=== PATIENT | male | born 1970 | race Two or more races ===

== ENCOUNTER 2016-09-27 11:24 | Inpatient (IN) | payer OTHER ==
[2016-09-27 12:31] VITALS: BMI 17.6
[2016-09-27] MEDS ORDERED: guaiFENesin/D-METHORPHAN HB 10 ML UNIT-DOSE CUPS PO PRN (14:04)
[2016-09-27] MEDS ORDERED: hydrOXYzine PAMOATE 50 MG CAPSULE (FP) PO PRN (14:04)
[2016-09-27] MEDS ORDERED: NICOTINE POLACRILEX 4 MG GUM BUC PRN (14:04)
[2016-09-27] MEDS ORDERED: MAGNESIUM CITRATE 300 ML BOTTLE PO PRN (14:04)
[2016-09-27] MEDS ORDERED: MAG HYDROX/AL HYDROX/SIMETH 30 ML UNIT-DOSE CUP PO PRN (14:04)
[2016-09-27] MEDS ORDERED: P-EPHED 60MG/TRIPROLIDI 2.5MG TABLET PO PRN (14:04)
[2016-09-27] MEDS ORDERED: IBUPROFEN 400 MG TABLET (FP) PO PRN (14:04)
[2016-09-27] MEDS ORDERED: MAGNESIUM HYDROX 2400MG/30ML ORAL SUSPENSION 30 ML CUP PO PRN (14:04)
[2016-09-27] MEDS ORDERED: MENTHOL/PHENOL 1 EACH UD MM PRN (14:04)
[2016-09-27] MEDS ORDERED: chlordiazePOXIDE HCL 25 MG CAPSULE PO PRN (14:04)
[2016-09-27] MEDS ORDERED: LOPERAMIDE HCL 2 MG CAPSULE PO PRN (14:04)
[2016-09-27] MEDS ORDERED: diphenhydrAMINE HCL 50 MG CAPSULE PO PRN (14:04)
[2016-09-27] MEDS ORDERED: ACETAMINOPHEN 325 MG TABLET (FP) PO PRN (14:04)
--- NOTE | 2016-09-27 14:04 | HP ---
CIWA Score - CIWA Score Nausea/Vomitin Muscle Tremors: 4-Moderate,w/Arms Extend Anxiety: 4-Mod. Anxious/Guarded Agitation: 4-Moderately Restless Paroxysmal Sweats: 3 Orientation: 0-Oriented Tacttile Disturbances: 0-None Auditory Disturbances: 0-None Visual Disturbances: 0-None Headache: 2-Mild CIWA-Ar Total Score: 20 Admission ROS BHS - HPI Chief Complaint: requesting inpatient alcohol detoxificaiton services Allergies/Adverse Reactions: Allergies Allergy/AdvReac Type Severity Reaction Status Date / Time No Known Allergies Allergy Verified 09/27/16 14:02 History of Present Illness: 46 yo m with h/o alcohol dependence and GLADIS, no h/o seizures, has had blackouts a long time ago, denies DTS, has been in detox 1x 5 years ago at . PMHx BCG h /o PPD+, otherwise neg, not on any mediations occasionally smokes marijuana no other drug use reported, no alcohol use today, last drink yesterday drinks vodka and beer, 64 oz 1-5 pints vodka. smokes 1PPD. Reports recent wt loss and ankle swelling from living on streets, nause, tremors, anxiety, sweats, insomania when he does not drink. 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 Exam Limitations: No Limitations - Ebola screening Have you traveled outside of the country in the last 21 days: No Have you had contact with anyone from an Ebola affected area: No Have you been sick,other than usual withdrawal symptoms: No Do you have a fever: No - Review of Systems Constitutional: Diaphoresis, Weight Stable EENT: reports: No Symptoms Reported Respiratory: reports: No Symptoms reported Cardiac: reports: No Symptoms Reported GI: reports: Poor Fluid Intake : reports: No Symptoms Reported Musculoskeletal: reports: No Symptoms Reported, Joint Pain (r arm when weather changes from overuse in construction) Integumentary: reports: Flushing, Sweating Neuro: reports: Headache, Tremors (when detoxing) Endocrine: reports: No Symptoms Reported Hematology: reports: No Symptoms Reported Psychiatric: reports: Judgement Intact, Mood/Affect Appropiate, Orientated x3, Agitated, Anxious, Depressed Other Systems: Reviewed and Negative Patient History - Patient Medical History Hx Anemia: No Hx Asthma: No Hx Chronic Obstructive Pulmonary Disease (COPD): No Hx Cancer: No Hx Cardiac Disorders: No Hx Congestive Heart Failure: No Hx Hypertension: No Hx Hypercholesterolemia: No Hx Pacemaker: No HX Cerebrovascular Accident: No Hx Seizures: No Hx Dementia: No Hx Diabetes: No Hx Gastrointestinal Disorders: No Hx Liver Disease: No Hx Genitourinary Disorders: No Hx Sexually Transmitted Disorders: No Hx Renal Disease (ESRD): No Hx Thyroid Disease: No Hx Human Immunodeficiency Virus (HIV): No Hx Hepatitis C: No Hx Depression: No Hx Suicide Attempt: No Hx Bipolar Disorder: No Hx Schizophrenia: No - Patient Surgical History Past Surgical History: No Hx Neurologic Surgery: No Hx Cataract Extraction: No Hx Cardiac Surgery: No Hx Lung Surgery: No Hx Breast Surgery: No Hx Breast Biopsy: No Hx Abdominal Surgery: No Hx Appendectomy: No Hx Cholecystectomy: No Hx Genitourinary Surgery: No Hx Section: No Hx Orthopedic Surgery: No Hx Hysterectomy: No Anesthesia Reaction: No - PPD History Previous Implant?: Yes Documented Results: Positive w/o proof Implanted On Prior R Admission?: Yes PPD to be Administered?: Yes - Reproductive History Patient is a Female of Child Bearing Age (11 -55 yrs old): No - Smoking Cessation Smoking history: Current every day smoker Have you smoked in the past 12 months: Yes Aproximately how many cigarettes per day: 20 Hx Chewing Tobacco Use: No Initiated information on smoking cessation: Yes 'Breaking Loose' booklet given: 09/27/16 - Substance & Tx. History Hx Alcohol Use: Yes Hx Substance Use: No Substance Use Type: Alcohol Hx Substance Use Treatment: Yes [facility] - Substances Abused Alcohol Route: Oral Frequency: Daily Amount used: vodka(1-2 pints)/beer64 oz Age of first use: 19 Date of Last Use: 09/26/16 Marijuana/Hashish Route: Inhalation Frequency: Daily Amount used: $10 Age of first use: 19 Date of Last Use: 09/26/16 Family Disease History - Family Disease History Family History: Denies Family Disease History: Other: Father (alcoholism) Admission Physical Exam BHS - Vital Signs Vital Signs: Vital Signs - 24 hr 09/27/16 12:29 Temperature 98.1 F Pulse Rate 101 H Respiratory 18 Rate Blood Pressure 148/87 - Physical General Appearance: Yes: No Apparent Distress, Nourished, Appropriately Dressed , Mild Distress, Thin, Tremorous, Irritable, Sweating, Anxious HEENTM: Yes: EOMI, Hearing grossly Normal, Normal ENT Inspection, Normocephalic , Normal Voice, PHILIP, Pharynx Normal, Other (poor dental hygiene) Respiratory: Yes: Within Normal Limits, Chest Non-Tender, Lungs Clear, Normal Breath Sounds, No Respiratory Distress, No Accessory Muscle Use Neck: Yes: Within Normal Limits, No masses,lesions,Nodules, Supple, Trachea in good position Breast: Yes: Breast Exam Deferred Cardiology: Yes: Within Normal Limits, Regular Rhythm, Regular Rate, S1, S2 Abdominal: Yes: Within Normal Limits, Normal Bowel Sounds, Non Tender, Flat, Soft Genitourinary: Yes: Within Normal Limits Back: Yes: Within Normal Limits, Normal Inspection Musculoskeletal: Yes: Within Normal Limits, full range of Motion, Gait Steady Extremities: Yes: Within Normal Limits, Normal Capillary Refill, Normal Inspection, Normal Range of Motion, Non-Tender 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
[2016-09-27] MEDS ORDERED: chlordiazePOXIDE HCL 25 MG CAPSULE PO ONE (14:57)
[2016-09-27] MEDS: NICOTINE 21 MG/24 HOURS TOPICAL PATCH TD SCH (16:25)
[2016-09-27] MEDS: chlordiazePOXIDE HCL 25 MG CAPSULE PO SCH ×2 (16:26→22:17)
[2016-09-27 20:31] LABS: URINE APPEARANCE CLEAR; URINE BILIRUBIN NEGATIVE (NEGATIVE); URINE BLOOD NEGATIVE (NEGATIVE); URINE COLOR DKYELLOW; URINE GLUCOSE (UA) NEGATIVE (NEGATIVE); URINE KETONE TRACE (NEGATIVE); URINE LEUK ESTERASE NEGATIVE (NEGATIVE); URINE NITRITE NEGATIVE (NEGATIVE); URINE PROTEIN NEGATIVE (NEGATIVE); URINE UROBILINOGEN 2.0 E.U/dl E.U./dl (0.2-1.0)
[2016-09-27] MEDS ORDERED: THIAMINE HCL 100 MG TABLET (FP) PO SCH (22:00)
[2016-09-28] MEDS: chlordiazePOXIDE HCL 25 MG CAPSULE PO SCH ×2 (05:51→10:09)
[2016-09-28 06:45] VITALS: PULSE 88
--- NOTE | 2016-09-28 08:35 | PN ---
[facility] CIWA - CIWA Score Nausea/Vomitin-No Nausea/No Vomiting Muscle Tremors: 4-Moderate,w/Arms Extend Anxiety: 4-Mod. Anxious/Guarded Agitation: 4-Moderately Restless Paroxysmal Sweats: 1-Minimal Palms Moist Orientation: 0-Oriented Tacttile Disturbances: 3-Moderate Itch/Numb/Burn Auditory Disturbances: 0-None Visual Disturbances: 0-None Headache: 0-None Present CIWA-Ar Total Score: 16 BHS Progress Note (SOAP) Subjective: ANXIETY,SWEATS,TREMORS,FACIAL FLUSHING,INTERMITTENT SLEEP Objective: 09/28/16 08:35 Vital Signs Temperature 96.1 F L 09/28/16 06:44 Pulse Rate 88 09/28/16 06:44 Respiratory Rate 18 09/28/16 06:44 Blood Pressure 143/99 09/28/16 06:44 O2 Sat by Pulse Oximetry (%) Laboratory Last Values Urine Color Dkyellow 09/27/16 19:00 Urine Appearance Clear 09/27/16 19:00 Urine pH 5.0 (5.0-8.0) 09/27/16 19:00 Ur Specific Combes 1.027 (1.001-1.035) 09/27/16 19:00 Urine Protein Negative (NEGATIVE) 09/27/16 19:00 Urine Glucose (UA) Negative (NEGATIVE) 09/27/16 19:00 Urine Ketones Trace (NEGATIVE) H 09/27/16 19:00 Urine Blood Negative (NEGATIVE) 09/27/16 19:00 Urine Nitrite Negative (NEGATIVE) 09/27/16 19:00 Urine Bilirubin Negative (NEGATIVE) 09/27/16 19:00 Urine Urobilinogen 2.0 e.u/dl E.U./dl (0.2-1.0) 09/27/16 19:00 Ur Leukocyte Esterase Negative (NEGATIVE) 09/27/16 19:00 Assessment: 09/28/16 08:35 WITHDRAWAL SX Plan: CONTINUE DETOX
[2016-09-28 09:40] VITALS: BP 140/90; TEMP 97.6
[2016-09-28] MEDS ORDERED: PRENATAL VITAMINS W/ FOLIC ACID TABLET (FP) PO SCH (10:00)
[2016-09-28] MEDS: NICOTINE 21 MG/24 HOURS TOPICAL PATCH TD SCH (10:09)
[2016-09-28 10:38] LABS: MCH 31.3 pg (25.7-33.7); MCHC 33.1 g/dl (32.0-35.9); MEAN CELL VOLUME 94.4 fl (80-96); MEAN PLT VOLUME 9.3 fl (7.5-11.1); PLATELET COUNT 190 K/MM3 (134-434); RDW 14.7 % (11.9-15.9)
[2016-09-28 11:00] LABS: ALBUMIN 4.1 g/dl (3.4-5.0); ALK PHOS 95 U/L (45-117); ANION GAP 8 (8-16); BILIRUBIN,TOTAL 1.1 mg/dL (0.2-1.0); CALCIUM 8.9 mg/dL (8.5-10.1); CO2 28 mmol/L (21-32); CREATININE 0.8 mg/dL (0.7-1.3); GLUCOSE,RANDOM 112 mg/dL (74-106); SGOT/AST 28 U/L (15-37); SGPT/ALT 28 U/L (12-78); TOT PROT 7.4 g/dl (6.4-8.2)
--- NOTE | 2016-09-28 12:31 | EKG ---
Test Reason : Blood Pressure : / mmHG Vent. Rate : 086 BPM Atrial Rate : 086 BPM P-R Int : 158 ms QRS Dur : 088 ms QT Int : 374 ms P-R-T Axes : 069 074 055 degrees QTc Int : 447 ms NORMAL SINUS RHYTHM NORMAL ECG NO PREVIOUS ECGS AVAILABLE Confirmed by LILI CASTANEDA, RITA ([id number]) on 09/28/2016 12:30:58 PM Referred By: Confirmed By:RITA PEARSON MD
--- NOTE | 2016-09-28 13:26 | PN ---
S Progress Note Note: patient verbally abusing nursing staff, for administrative discharge immediately , nursing and security aware.
--- NOTE | 2016-09-28 13:28 | DS ---
[facility] Detox Discharge Summary Admission Date: 09/27/16 Discharge Date: 09/28/16 - History Present History: Alcohol Dependence, Cannabis Dependence Pertinent Past History: nicotine dependence, PPD +, anxiety, depression and insomnia - Physical Exam Results Vital Signs: Vital Signs Temperature 97.6 F 09/28/16 09:39 Pulse Rate 88 09/28/16 09:39 Respiratory Rate 20 09/28/16 09:39 Blood Pressure 140/90 09/28/16 09:39 O2 Sat by Pulse Oximetry (%) Pertinent Admission Physical Exam Findings: withdrawal sx - Treatment Hospital Course: Detox Protocol Followed Patient has Accepted a Rehab Referral to: Yes - Medication Discharge Medications: Ambulatory Orders NK [No Known Home Medication] 09/27/16 - Diagnosis (1) Alcohol dependence with uncomplicated withdrawal Current Visit: Yes Status: Acute (2) Nicotine dependence Current Visit: Yes Status: Acute (3) PPD positive Current Visit: Yes Status: Acute (4) Cannabis abuse Current Visit: Yes Status: Acute - AMA Did Patient Leave Against Medical Advice: No (administrative discharge)
--- NOTE | 2016-09-28 13:39 | CONSULT ---
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 Substance Abuse History: Smoking Cessation. Smoking history: Current every day smoker. Have you smoked in the past 12 months: Yes. Aproximately how many cigarettes per day: 20. Hx Chewing Tobacco Use: No. Initiated information on smoking cessation: Yes. 'Breaking Loose' booklet given: 09/27/16. - Substance & Tx. History. Hx Alcohol Use: Yes. Hx Substance Use: No. Substance Use Type : Alcohol. Hx Substance Use Treatment: Yes ([facility] 5 day inpatietn detox 5 years ago). - Substances Abused. Alcohol. Route: Oral. Frequency: Daily. Amount used: vodka(1-2 pints)/beer64 oz. Age of first use: 19. Date of Last Use: 09/26/16. Marijuana/Hashish. Route: Inhalation. Frequency: Daily. Amount used: $10. Age of first use: 19. Date of Last Use: 09/26/16. Taken from [facility] report. Additional Comment: Psychiatric interview cannot be conducted :patient is uncooperative.
[2016-09-28] MEDS ORDERED: chlordiazePOXIDE HCL 25 MG CAPSULE PO SCH (17:00)
[2016-09-29] MEDS ORDERED: chlordiazePOXIDE 5 MG CAPSULE PO SCH (17:00)
[2016-09-30] MEDS ORDERED: chlordiazePOXIDE HCL 10 MG CAPSULE PO SCH (17:00)
== END 2016-09-28 13:40 | disposition home or self-care (01) | DRG 775 ==
LOC: YASAS 11:24 → Y3N 14:52
PROVIDERS: ADMIT Internal Medicine; ATTEND Internal Medicine
PROC: HZ2ZZZZ Detoxification Services for Substance Abuse Treatment (ICD-10-PCS; principal; 2016-09-27)
DX: F10.230 Alcohol dependence with withdrawal, uncomplicated (principal); F12.10 Cannabis abuse, uncomplicated; F17.210 Nicotine dependence, cigarettes, uncomplicated; R76.11 Nonspecific reaction to tuberculin skin test without active tuberculosis; F91.8 Other conduct disorders
CPT/HCPCS: 36415; 71020-TC; 80053; 81003; 85027; 86593; 93005; 93010